=== PATIENT | male | born 1945 | race Caucasian/White ===

== ENCOUNTER → 2024-10-12 12:57 | Outpatient (CLI) | payer OTHER, SELFPAY ==
--- NOTE | 2024-10-12 13:02 | DI.RAD.S_ITS ---
PROCEDURE: XR LUMBAR SPINE 2-3V INDICATIONS: Back pain TECHNIQUE: 3 views of the lumbar spine were acquired. COMPARISON: None. FINDINGS: Rudimentary ribs are present at T12. Five non rib-bearing lumbar vertebrae are present. Multilevel flowing anterior osteophytes are present along the lumbar spine. The vertebral body heights are preserved. The intervertebral disc heights are preserved. Multilevel hypertrophy of the spinous processes with moderate-severe facet arthropathy, most conspicuous at L4-L5 and L5-S1. 5 mm retrolisthesis of L1 on L2. 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 Multilevel moderate-severe facet arthropathy. Dictated by: Eddi Jara M.D. on 10/12/2024 at 16:08 Approved by: Eddi Jara M.D. on 10/12/2024 at 16:10
--- NOTE | 2024-10-12 13:03 | DI.RAD.S_ITS ---
PROCEDURE: XR KNEE LT 3V INDICATIONS: KNEE PAIN TECHNIQUE: 3 views of the knee were acquired. COMPARISON: None. FINDINGS: No acute fracture or dislocation. Mild medial compartment osteoarthritis. Small joint effusion. IMPRESSION: Mild medial compartment osteoarthritis. Dictated by: Eddi Jara M.D. on 10/12/2024 at 16:10 Approved by: Eddi Jara M.D. on 10/12/2024 at 16:11
== END ==
PROVIDERS: PCP Family Medicine; Referring Provider Chiropractor; Visit Provider Chiropractor
DX: M13.862 Other specified arthritis, left knee (principal); M47.816 Spondylosis without myelopathy or radiculopathy, lumbar region; M47.817 Spondylosis without myelopathy or radiculopathy, lumbosacral region; M43.16 Spondylolisthesis, lumbar region; M25.462 Effusion, left knee
CPT/HCPCS: 72100; 73562